=== PATIENT | female | born 1990 | race African-American/Black ===

== ENCOUNTER 2019-12-13 12:38 | Emergency (ER) | payer SELFPAY ==
[~2019-12-13] VITALS: Ht 149.9 cm; Wt 54.4 kg
[2019-12-13 13:22] VITALS: BP 122/55
== END 2019-12-13 14:10 | disposition home or self-care (01) ==
LOC: ER 12:38
DX: H10.32 Unspecified acute conjunctivitis, left eye (principal); J45.909 Unspecified asthma, uncomplicated; Z88.1 Allergy status to other antibiotic agents